=== PATIENT | female | born 1985 | race Caucasian/White ===

== ENCOUNTER → 2020-07-22 | Outpatient (CLI) | payer OTHER ==
[~2020-07-22] MED LIST: CETIRIZINE HCL10 MG PO; COLACE 100MG C100 MG PO; HYDROCHLOROTHIA50 MG PO; LEVOTHYROXINE25 MCG PO; LINZESS290 MCG PO; MONTELUKAST SOD10 MG PO; PROTONIX 40 MG40 M1 PO; VENTOLIN HFA 66.7 GM INH; VITAMIN D21250 MCG PO
== END ==
LOC: LAB 14:25
DX: R10.13 Epigastric pain (principal)
CPT/HCPCS: 36415; 82150; 83690

== ENCOUNTER → 2020-08-06 | Day surgery (SDC) | payer OTHER ==
[~2020-08-06] VITALS: Ht 152.4 cm; Wt 73.9 kg
== END | disposition home or self-care (01) ==
LOC: OR 08:45
DX: K21.00 Gastro-esophageal reflux disease with esophagitis, without bleeding (principal); K22.4 Dyskinesia of esophagus; K58.2 Mixed irritable bowel syndrome; E66.9 Obesity, unspecified; J45.909 Unspecified asthma, uncomplicated; E03.9 Hypothyroidism, unspecified; Z79.890 Hormone replacement therapy; Z98.84 Bariatric surgery status
CPT/HCPCS: J2704

== ENCOUNTER → 2020-08-21 | Outpatient (CLI) | payer OTHER | LOC: KOH-I 12:56 | DX: R10.13 Epigastric pain (principal) | CPT/HCPCS: 74018 ==

== ENCOUNTER → 2020-10-06 | Outpatient (CLI) | payer OTHER | LOC: ECHO 11:29 | DX: I20.9 Angina pectoris, unspecified (principal); R06.02 Shortness of breath | CPT/HCPCS: ECHO; 93306 ==

== ENCOUNTER → 2020-11-05 | Outpatient (CLI) | payer OTHER | LOC: NM 08:55 | DX: I20.9 Angina pectoris, unspecified (principal) | CPT/HCPCS: 78452; A9502 ==

== ENCOUNTER → 2020-11-12 | Outpatient (CLI) | payer OTHER | LOC: KOH-I 08:00 | DX: M25.512 Pain in left shoulder (principal); M54.2 Cervicalgia; M19.012 Primary osteoarthritis, left shoulder | CPT/HCPCS: 72141; 73221 ==

== ENCOUNTER → 2021-03-16 | Outpatient (CLI) | payer OTHER ==
[2021-03-16 18:43] LABS: HEMOGLOBIN 11.8 gm/dl (12.3-15.3); RED BLOOD COUNT 4.12 M/UL (4.00-5.10); WHITE BLOOD COUNT 6.5 K/UL (4.5-11.0)
[2021-03-16 18:51] LABS: BUN/CREATININE RATIO 27 (0-10)
[2021-03-18 07:10] LABS: VITAMIN D, 25-HYDROXY 34.9 ng/mL (30.0-100.0)
== END ==
LOC: LBRF 17:31
PROVIDERS: Surgery
DX: Z48.815 Encounter for surgical aftercare following surgery on the digestive system (principal); Z51.81 Encounter for therapeutic drug level monitoring; L02.211 Cutaneous abscess of abdominal wall; J85.1 Abscess of lung with pneumonia; E55.9 Vitamin D deficiency, unspecified; Z79.01 Long term (current) use of anticoagulants
CPT/HCPCS: 80053; 82607; 82728; 82746; 83540; 83550; 83735; 83921; 83970; 84100; 84134; 84446; 84597; 84630; 85025; 85610

== ENCOUNTER → 2021-10-27 | Outpatient (CLI) | payer OTHER | LOC: HEART 5 10:33 | DX: I20.9 Angina pectoris, unspecified (principal); R06.02 Shortness of breath; R00.2 Palpitations; I49.3 Ventricular premature depolarization | CPT/HCPCS: 93306 ==